=== PATIENT | female | born 1995 | race American Indian/Alaskan Native ===

== ENCOUNTER 2018-10-10 14:43 | Outpatient (CLI) | payer MEDICAID ==
[2018-10-10 18:00] VITALS: BP 106/56
== END 2018-10-10 18:30 | disposition home or self-care (01) ==
LOC: TRG 14:43
PROVIDERS: ATTEND Obstetrics & Gynecology
DX: O47.02 False labor before 37 completed weeks of gestation, second trimester (principal); O99.512 Diseases of the respiratory system complicating pregnancy, second trimester; J45.909 Unspecified asthma, uncomplicated; Z3A.25 25 weeks gestation of pregnancy
CPT/HCPCS: 59025